=== PATIENT | female | born 1955 | race Caucasian/White ===

== ENCOUNTER 2018-07-07 09:27 | Emergency (ER) | payer OTHER ==
[2018-07-07 09:37] VITALS: BP 149/93
--- NOTE | 2018-07-07 11:00 | UC ---
Throat Pain/Nasal Russell HPI - HPI Summary HPI Summary: 62 year old female with h/o PNA several years ago, + TOB use presents with ~ 1 week of nasal congestion, productive cough, feeling fatigued, + tactile fever. Denies ear pain, sore throat, GI complaints. STates symptoms seemed to improve but over past 1-2 days have worsened and are more severe. - History of Current Complaint Chief Complaint: UCRespiratory Stated Complaint: cold Time Seen by Provider: 07/07/18 10:39 Hx Obtained From: Patient ?: No Onset/Duration: Sudden Onset, Lasting Days Severity: Mild Pain Intensity: 0 Pain Scale Used: 0-10 Numeric Cough: Nonproductive Associated Signs & Symptoms: Positive: Fever - Allergies/Home Medications Allergies/Adverse Reactions: Allergies Allergy/AdvReac Type Severity Reaction Status Date / Time No Known Allergies Allergy Verified 07/07/18 09:37 Home Medications: Home Medications amLODIPine TAB* [Norvasc 5 mg TAB*] 1 tab PO DAILY 07/07/18 [History Confirmed 07/07/18] PMH/Surg Hx/FS Hx/Imm Hx Previously Healthy: Yes - Surgical History Surgical History: None - Social History Alcohol Use: Occasionally Substance Use Type: None Smoking Status (MU): Current Some Day Smoker Review of Systems All Other Systems Reviewed And Are Negative: Yes Constitutional: Positive: Fatigue ENT: Positive: Sinus Congestion, Sinus Pain/Tenderness Respiratory: Positive: Cough Cardiovascular: Positive: Negative Is Patient Immunocompromised?: No Physical Exam Triage Information Reviewed: Yes Appearance: No Pain Distress, Well-Nourished, Ill-Appearing - mild Vital Signs: Initial Vital Signs Temp 98 F 07/07/18 09:35 Pulse 80 07/07/18 09:35 Resp 17 07/07/18 09:35 BP 149/93 07/07/18 09:35 Pulse Ox 99 07/07/18 09:35 Vital Signs Reviewed: Yes Eyes: Positive: Conjunctiva Clear ENT: Positive: Pharynx normal, TMs normal, Sinus tenderness. Negative: TM bulging, TM dull, TM red, Tonsillar swelling, Tonsillar exudate, Uvula midline Neck: Positive: Supple, Nontender, No Lymphadenopathy. Negative: Nuchal Rigidity, Enlarged Nodes @ Respiratory: Positive: Chest non-tender, Normal breath sounds, No respiratory distress, No accessory muscle use, Wheezing - RIght upper and lower lobes Cardiovascular: Positive: RRR Psychological Exam: Normal Skin Exam: Normal Throat Pain/Nasal Course/Dx - Course Course Of Treatment: Likely bacterial sinusitis, abx given. Follow up with PCP if no improvment - Differential Dx/Diagnosis Differential Diagnosis/HQI/PQRI: Sinusitis Provider Diagnosis: Sinusitis Discharge - Sign-Out/Discharge Documenting (check all that apply): Patient Departure All imaging exams completed and their final reports reviewed: No Studies - Discharge Plan Condition: Good Disposition: HOME Prescriptions: Azithromyxin JENNIFER (NF) [Z-Jennifer (Zithromax) 250 mg tabs #6] 2 tab PO .TODAY, THEN 1 DAILY #6 tab Patient Education Materials: Sinusitis (ED) Forms: *Work Release Referrals: Kristen De Dios NP [Primary Care Provider] - Additional Instructions: - Antibiotics as directed - Follow up with primary if no improvement within 1-2 days - Tylenol as needed for pain, fever - Increase fluid intake - Work note given if needed - Billing Disposition and Condition Condition: GOOD Disposition: Home
== END 2018-07-07 11:10 | disposition home or self-care (01) ==
LOC: UCEAST 09:27
DX: J32.9 Chronic sinusitis, unspecified (principal); R50.9 Fever, unspecified; R53.83 Other fatigue; Z72.0 Tobacco use
CPT/HCPCS: 99212; G0463